=== PATIENT | female | born 1940 | race Caucasian/White ===

== ENCOUNTER 2017-12-22 18:08 | Inpatient (IN) | payer MEDICARE ==
[~2017-12-22] VITALS: Ht 154.9 cm; Wt 61.4 kg
[2017-12-22] MEDS ORDERED: SODIUM CHLORIDE 0.9% 1,000 ML IV ONE (18:19)
[2017-12-22] MEDS ORDERED: SODIUM CHLORIDE FLUSH 10ML SYR IVF ONE (18:30)
[2017-12-22] MEDS ORDERED: AZITHROMYCIN 500 MG in SODIUM CHLORIDE 0.9% 250 ML IVPB ONE (18:30)
[2017-12-22] MEDS ORDERED: CEFTRIAXONE PMX 1GM/50ML 50 ML IVPB ONE (18:30)
[2017-12-22] MEDS ORDERED: ATEN25TA PO (18:31)
[2017-12-22] MEDS ORDERED: FENO160T PO (18:31)
[2017-12-22] MEDS ORDERED: AMLO10TA2 PO (18:31)
[2017-12-22] MEDS ORDERED: CEFTRIAXONE PMX 1GM/50ML 50 ML ONE (18:41)
[2017-12-22] MEDS ORDERED: PLEASE ENTER ALLERGIES MC SCH (19:00)
[2017-12-22 19:03] LABS: BASOPHILS # (AUTO) 0.15 x10^3/uL (0-0.1); BASOPHILS % (AUTO) 1 % (0-1); EOSINOPHILS # (AUTO) 0.03 x10^3/uL (0-0.4); EOSINOPHILS % (AUTO) 0 % (1-7); LYMPHOCYTES % (AUTO) 18 % (22-44); MD NO; MEAN CORPUSCULAR HEMOGLOBIN 29.8 pg (27.0-34.8); MEAN CORPUSCULAR HGB CONC 33.8 g/dL (32.4-35.8); MEAN CORPUSCULAR VOLUME 88.2 fL (80-100); MEAN PLATELET VOLUME 7.5 fL (7.4-10.4); MONOCYTES % (AUTO) 7 % (2-9); NEUTROPHILS # (AUTO) 9.99 x10^3/uL (1.8-6.8); NEUTROPHILS % (AUTO) 74 % (42-75); PLATELET COUNT 422 x10^3/uL (130-400); RED BLOOD COUNT 4.25 x10^6/uL (3.82-5.3); RED CELL DISTRIBUTION WIDTH 14.6 % (9.6-15.2)
[2017-12-22 19:11] LABS: INTERNATIONAL NORMALIZED RATIO 0.96 (0.93-1.1)
[2017-12-22 19:14] LABS: ALANINE AMINOTRANSFERASE 18 U/L (12-78); ANION GAP 9 mmol/L (5-15); CALCIUM 9.2 mg/dL (8.5-10.1); CHLORIDE 102 mmol/L (98-107); CREATININE 1.12 mg/dL (0.55-1.02)
[2017-12-22 19:18] LABS: ALKALINE PHOSPHATASE 97 U/L (45-117); BILIRUBIN,TOTAL 0.5 mg/dL (0.2-1.0)
[2017-12-22] MEDS ORDERED: OMNIPAQUE 350 MG/ML, 100ML BOTTLE ONE (21:11)
[2017-12-22] MEDS ORDERED: SODIUM CHLORIDE FLUSH 10ML SYR IVF PRN (22:00)
[2017-12-22 23:09] VITALS: BP 128/72
[2017-12-22] MEDS ORDERED: GUAIFENESIN/DM 200-20MG, 10ML UDC PO PRN (23:30)
[2017-12-22] MEDS ORDERED: TEMAZEPAM 15 MG CAPSULE PO PRN (23:30)
[2017-12-22] MEDS ORDERED: ONDANSETRON ODT 4 MG PO PRN (23:30)
[2017-12-22] MEDS ORDERED: DOCUSATE 100 MG CAPSULE PO PRN (23:30)
[2017-12-22] MEDS ORDERED: LABETALOL 5MG/ML, 20ML IVPush PRN (23:30)
[2017-12-23] MEDS: ENOXAPARIN 40 MG/0.4 ML SQ SCH ×2 (00:02→20:11)
[2017-12-23] MEDS: GUAIFENESIN ER 600 MG TABLET PO SCH ×3 (00:02→20:11)
[2017-12-23] MEDS: SODIUM CHLORIDE 0.9% 1,000 ML IV SCH ×2 (00:02→06:39)
[2017-12-23 01:11] VITALS: BP 149/62
[2017-12-23 01:52] LABS: RAPID INFLUENZA A Negative (Negative); RAPID INFLUENZA B Negative (Negative)
[2017-12-23 07:56] VITALS: BP 147/79
[2017-12-23] MEDS: AMLODIPINE 5 MG TABLET PO SCH (08:26)
[2017-12-23] MEDS: FENOFIBRATE 145 MG TABLET PO SCH (08:26)
[2017-12-23] MEDS: ATENOLOL 25 MG TABLET PO SCH (08:26)
[2017-12-23] MEDS: DOXYCYCLINE 100MG TABLET PO SCH ×2 (08:26→20:11)
[2017-12-23 14:26] VITALS: BP 122/73
[2017-12-23] MEDS ORDERED: AZITHROMYCIN 500 MG in SODIUM CHLORIDE 0.9% 250 ML IV SCH (18:30)
[2017-12-23 19:21] VITALS: BP 118/61
[2017-12-23] MEDS: CEFTRIAXONE PMX 1GM/50ML 50 ML IV SCH (20:13)
[2017-12-24 01:13] VITALS: BP 114/62
[2017-12-24 06:40] VITALS: BP 124/70
[2017-12-24] MEDS: ATENOLOL 25 MG TABLET PO SCH (08:43)
[2017-12-24] MEDS: AMLODIPINE 5 MG TABLET PO SCH (08:43)
[2017-12-24] MEDS: FENOFIBRATE 145 MG TABLET PO SCH (08:43)
[2017-12-24] MEDS: DOXYCYCLINE 100MG TABLET PO SCH ×2 (08:43→20:52)
[2017-12-24] MEDS: GUAIFENESIN ER 600 MG TABLET PO SCH (08:43)
[2017-12-24 08:48] LABS: BASOPHILS # (AUTO) 0.08 x10^3/uL (0-0.1); BASOPHILS % (AUTO) 1 % (0-1); EOSINOPHILS # (AUTO) 0.02 x10^3/uL (0-0.4); EOSINOPHILS % (AUTO) 0 % (1-7); LYMPHOCYTES % (AUTO) 21 % (22-44); MD NO; MEAN CORPUSCULAR HEMOGLOBIN 29.2 pg (27.0-34.8); MEAN CORPUSCULAR HGB CONC 32.9 g/dL (32.4-35.8); MEAN CORPUSCULAR VOLUME 88.6 fL (80-100); MONOCYTES # (AUTO) 0.62 x10^3/uL (0.2-0.8); MONOCYTES % (AUTO) 5 % (2-9); NEUTROPHILS # (AUTO) 9.85 x10^3/uL (1.8-6.8); NEUTROPHILS % (AUTO) 74 % (42-75); PLATELET COUNT 446 x10^3/uL (130-400); RED BLOOD COUNT 3.98 x10^6/uL (3.82-5.3); RED CELL DISTRIBUTION WIDTH 14.9 % (9.6-15.2)
[2017-12-24 08:55] LABS: ANION GAP 9 mmol/L (5-15); CALCIUM 9.1 mg/dL (8.5-10.1); CHLORIDE 108 mmol/L (98-107); CREATININE 0.83 mg/dL (0.55-1.02)
[2017-12-24] MEDS: GUAIFENESIN 200 MG TABLET PO SCH ×3 (11:43→20:52)
[2017-12-24 12:35] VITALS: BP 123/71
[2017-12-24] MEDS: CEFTRIAXONE PMX 1GM/50ML 50 ML IV SCH (19:57)
[2017-12-24 20:01] VITALS: BP 128/71
[2017-12-24] MEDS: ENOXAPARIN 40 MG/0.4 ML SQ SCH (20:52)
[2017-12-25 01:10] VITALS: BP 147/74
[2017-12-25 05:19] LABS: BASOPHILS # (AUTO) 0.05 x10^3/uL (0-0.1); BASOPHILS % (AUTO) 0 % (0-1); EOSINOPHILS % (AUTO) 0 % (1-7); LYMPHOCYTES # (AUTO) 2.07 x10^3/uL (1-3.4); LYMPHOCYTES % (AUTO) 16 % (22-44); MD NO; MEAN CORPUSCULAR HEMOGLOBIN 29.3 pg (27.0-34.8); MEAN CORPUSCULAR HGB CONC 33.3 g/dL (32.4-35.8); MEAN CORPUSCULAR VOLUME 87.9 fL (80-100); MEAN PLATELET VOLUME 7.2 fL (7.4-10.4); MONOCYTES # (AUTO) 0.43 x10^3/uL (0.2-0.8); MONOCYTES % (AUTO) 3 % (2-9); NEUTROPHILS % (AUTO) 81 % (42-75); PLATELET COUNT 467 x10^3/uL (130-400); RED BLOOD COUNT 3.97 x10^6/uL (3.82-5.3); RED CELL DISTRIBUTION WIDTH 14.1 % (9.6-15.2)
[2017-12-25 05:26] LABS: ALBUMIN 2.5 g/dL (3.4-5.0); ANION GAP 9 mmol/L (5-15); CHLORIDE 105 mmol/L (98-107); CREATININE 0.73 mg/dL (0.55-1.02)
[2017-12-25] MEDS: GUAIFENESIN 200 MG TABLET PO SCH ×4 (06:16→21:10)
[2017-12-25 07:57] VITALS: BP 149/76
[2017-12-25] MEDS: ATENOLOL 25 MG TABLET PO SCH (09:24)
[2017-12-25] MEDS: FENOFIBRATE 145 MG TABLET PO SCH (09:24)
[2017-12-25] MEDS: AMLODIPINE 5 MG TABLET PO SCH (09:24)
[2017-12-25] MEDS: DOXYCYCLINE 100MG TABLET PO SCH ×2 (09:26→21:11)
[2017-12-25] MEDS ORDERED: ZOLPIDEM 5MG TABLET PO PRN (09:30)
[2017-12-25 12:50] VITALS: BP 133/76
[2017-12-25] MEDS ORDERED: CEFTRIAXONE 1,000 MG in SODIUM CHLORIDE 0.9% 50 ML IV SCH (20:00)
[2017-12-25 20:05] VITALS: BP 134/74
[2017-12-25] MEDS: ENOXAPARIN 40 MG/0.4 ML SQ SCH (21:12)
[2017-12-26 00:25] VITALS: BP 131/76
[2017-12-26 05:38] LABS: BASOPHILS # (AUTO) 0.03 x10^3/uL (0-0.1); BASOPHILS % (AUTO) 0 % (0-1); EOSINOPHILS % (AUTO) 0 % (1-7); LYMPHOCYTES % (AUTO) 19 % (22-44); MD NO; MEAN CORPUSCULAR HEMOGLOBIN 29.4 pg (27.0-34.8); MEAN CORPUSCULAR HGB CONC 33.6 g/dL (32.4-35.8); MEAN CORPUSCULAR VOLUME 87.7 fL (80-100); MEAN PLATELET VOLUME 6.9 fL (7.4-10.4); MONOCYTES # (AUTO) 0.63 x10^3/uL (0.2-0.8); MONOCYTES % (AUTO) 5 % (2-9); NEUTROPHILS # (AUTO) 10.18 x10^3/uL (1.8-6.8); NEUTROPHILS % (AUTO) 76 % (42-75); PLATELET COUNT 541 x10^3/uL (130-400); RED BLOOD COUNT 4.14 x10^6/uL (3.82-5.3)
[2017-12-26 05:49] LABS: ALBUMIN 2.6 g/dL (3.4-5.0); ANION GAP 10 mmol/L (5-15); CALCIUM 9.2 mg/dL (8.5-10.1); CHLORIDE 103 mmol/L (98-107)
[2017-12-26 05:54] LABS: ALANINE AMINOTRANSFERASE 16 U/L (12-78); ALKALINE PHOSPHATASE 86 U/L (45-117); BILIRUBIN,TOTAL 0.7 mg/dL (0.2-1.0); CREATININE 0.85 mg/dL (0.55-1.02); TOTAL PROTEIN 7.5 g/dL (6.4-8.2)
[2017-12-26] MEDS: GUAIFENESIN 200 MG TABLET PO SCH ×4 (05:54→20:41)
[2017-12-26 07:28] VITALS: BP 128/83
[2017-12-26] MEDS: ATENOLOL 25 MG TABLET PO SCH (08:59)
[2017-12-26] MEDS: FENOFIBRATE 145 MG TABLET PO SCH (08:59)
[2017-12-26] MEDS: AMLODIPINE 5 MG TABLET PO SCH (09:00)
[2017-12-26] MEDS: DOXYCYCLINE 100MG TABLET PO SCH ×2 (09:00→20:41)
[2017-12-26 12:18] VITALS: BP 134/66
[2017-12-26 19:00] VITALS: BP 125/72
[2017-12-26] MEDS ORDERED: CEFTRIAXONE 1,000 MG in DEXTROSE 5% 50 ML IV SCH (20:00)
[2017-12-26] MEDS: ENOXAPARIN 40 MG/0.4 ML SQ SCH (20:43)
[2017-12-27 01:29] VITALS: BP 126/71
[2017-12-27 05:48] LABS: BASOPHILS # (AUTO) 0.04 x10^3/uL (0-0.1); BASOPHILS % (AUTO) 0 % (0-1); EOSINOPHILS # (AUTO) 0.01 x10^3/uL (0-0.4); EOSINOPHILS % (AUTO) 0 % (1-7); LYMPHOCYTES # (AUTO) 2.54 x10^3/uL (1-3.4); LYMPHOCYTES % (AUTO) 18 % (22-44); MD NO; MEAN CORPUSCULAR HEMOGLOBIN 29.7 pg (27.0-34.8); MEAN CORPUSCULAR HGB CONC 33.9 g/dL (32.4-35.8); MEAN CORPUSCULAR VOLUME 87.7 fL (80-100); MONOCYTES # (AUTO) 0.29 x10^3/uL (0.2-0.8); MONOCYTES % (AUTO) 2 % (2-9); NEUTROPHILS # (AUTO) 10.95 x10^3/uL (1.8-6.8); NEUTROPHILS % (AUTO) 79 % (42-75); PLATELET COUNT 560 x10^3/uL (130-400); RED BLOOD COUNT 4.32 x10^6/uL (3.82-5.3); RED CELL DISTRIBUTION WIDTH 14.1 % (9.6-15.2)
[2017-12-27] MEDS: GUAIFENESIN 200 MG TABLET PO SCH ×2 (05:48→11:16)
[2017-12-27 06:53] VITALS: BP 134/73
[2017-12-27] MEDS: ATENOLOL 25 MG TABLET PO SCH (08:11)
[2017-12-27] MEDS: FENOFIBRATE 145 MG TABLET PO SCH (08:11)
[2017-12-27] MEDS: DOXYCYCLINE 100MG TABLET PO SCH (08:11)
[2017-12-27] MEDS: AMLODIPINE 5 MG TABLET PO SCH (08:11)
[2017-12-27 12:06] VITALS: BP 128/72
[2017-12-27] MEDS ORDERED: CEFTRIAXONE 1,000 MG in DEXTROSE 5% 50 ML IV SCH (13:00)
[2017-12-27] MEDS ORDERED: DOXY100T PO (14:54)
[2017-12-27] MEDS ORDERED: PRED10TA PO (14:54)
[2017-12-27] MEDS ORDERED: GUAI200T3 PO (14:54)
[2017-12-27 15:43] VITALS: BP 122/78
== END 2017-12-27 15:30 | disposition home or self-care (01) | DRG 871 ==
LOC: ED 21:41 → EDIP 21:50 → 4NOR 22:56
PROVIDERS: ADMIT Internal Medicine; ATTEND Internal Medicine
DX: A41.9 Sepsis, unspecified organism (principal); J18.9 Pneumonia, unspecified organism; J96.01 Acute respiratory failure with hypoxia; I31.3 Pericardial effusion (noninflammatory); E44.1 Mild protein-calorie malnutrition; I11.9 Hypertensive heart disease without heart failure; E78.1 Pure hyperglyceridemia; E87.6 Hypokalemia; Z80.3 Family history of malignant neoplasm of breast; Z85.038 Personal history of other malignant neoplasm of large intestine; Z90.49 Acquired absence of other specified parts of digestive tract; Z92.21 Personal history of antineoplastic chemotherapy; R91.8 Other nonspecific abnormal finding of lung field; Z68.25 Body mass index [BMI] 25.0-25.9, adult
CPT/HCPCS: 36415; 71045; 71275; 80048; 80053; 82040; 83605; 83735; 83880; 84100; 84145; 85025; 85610; 85730; 87040; 87070; 87205; 87400; 93005; 93306; 93970; 96365; 96366; 96368; J0456; J0696; J1650; Q9967; J7030; J7050; J7512

== ENCOUNTER → 2018-02-18 | Outpatient (CLI) | payer MEDICARE ==
[~2018-02-18] MED LIST: AMLO10TA2 PO; ATEN25TA PO; DOXY100T PO; FENO160T PO; GUAI200T3 PO; OMNIPAQUE 350 MG/ML, 75ML BOTTLE ONE; PRED10TA PO
== END ==
LOC: CFH 09:02
PROVIDERS: ATTEND Internal Medicine Critical Care Medicine
DX: R91.1 Solitary pulmonary nodule (principal); I51.7 Cardiomegaly; J18.9 Pneumonia, unspecified organism; Z87.891 Personal history of nicotine dependence
CPT/HCPCS: 71260; Q9967

== ENCOUNTER → 2018-12-02 | Outpatient (CLI) | payer MEDICARE ==
[~2018-12-02] MED LIST changes: -AMLO10TA2 PO; +AMLO10TA8 PO; -OMNIPAQUE 350 MG/ML, 75ML BOTTLE ONE
== END | disposition home or self-care (01) ==
LOC: CFH 13:34
PROVIDERS: ATTEND Internal Medicine Critical Care Medicine
DX: R91.1 Solitary pulmonary nodule (principal); I51.7 Cardiomegaly; M48.54XD Collapsed vertebra, not elsewhere classified, thoracic region, subsequent encounter for fracture with routine healing
CPT/HCPCS: 71250

== ENCOUNTER → 2020-02-15 | Outpatient (CLI) | payer MEDICARE ==
[~2020-02-15] MED LIST changes: -GUAI200T3 PO; +GUAI200T37 PO
== END | disposition home or self-care (01) ==
LOC: CFH 14:08
PROVIDERS: ATTEND Internal Medicine Critical Care Medicine
DX: R91.1 Solitary pulmonary nodule (principal); J98.4 Other disorders of lung; J98.11 Atelectasis; I25.10 Atherosclerotic heart disease of native coronary artery without angina pectoris; I70.0 Atherosclerosis of aorta; M25.78 Osteophyte, vertebrae; E04.1 Nontoxic single thyroid nodule; I51.7 Cardiomegaly
CPT/HCPCS: 71250